=== PATIENT | male | born 1960 | race Caucasian/White ===

== ENCOUNTER 2021-11-21 13:08 | Emergency (ER) | payer SELFPAY ==
[~2021-11-21] VITALS: Ht 190.5 cm; Wt 91.2 kg
[2021-11-21 13:12] VITALS: BP 140/80
--- NOTE | 2021-11-21 13:24 | NUR ---
PT AMBULATED TO ER BED 5
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
[2021-11-21 14:09] VITALS: BP 140/80
--- NOTE | 2021-11-21 14:09 | NUR ---
Patient discharged with v/s stable. Written and verbal after care instructions given and explained. Patient verbalized understanding. Ambulatory with steady gait. All questions addressed prior to discharge. Advised to follow up with PMD. PT PROVIDED W/ UBER RIDE TO [id number] [place] [id number]
== END 2021-11-21 14:09 | disposition home or self-care (01) ==
LOC: MED 13:08
DX: F10.129 Alcohol abuse with intoxication, unspecified (principal); R19.7 Diarrhea, unspecified; Z98.890 Other specified postprocedural states
CPT/HCPCS: 99283